=== PATIENT | male | born 1950 | race Caucasian/White ===

== ENCOUNTER 2016-10-15 14:30 | Emergency (ER) | payer OTHER ==
[2016-10-15] MEDS ORDERED: KETOROLAC TROMETHAMINE INJ 30 MG/ML VIAL IV ONE (14:38)
[2016-10-15] MEDS ORDERED: SODIUM CHLORIDE 0.9% 1000ML 1,000 ML IVS ONE (14:39)
[2016-10-15 14:41] VITALS: TEMP 97.3
--- NOTE | 2016-10-15 14:54 | ED.PDOC ---
History of Present Illness - General Chief Complaint: Abdominal Pain Stated Complaint: abdominal pain Time Seen by Provider: 10/15/16 14:37 Information Source: patient, RN notes reviewed, Vital Signs reviewed, family Additional Information: Pt reports sudden onset of left sided abdominal pain - sharp and cramp associated with nausea and vomiting. No prior similar symptoms. - History of Present Illness Abdominal Pain Onset Location: LLQ Pain Radiation: groin Quality: severe, cramping, sharpness Timing/Duration: 1 hour Improving Factors: nothing Worsening Factors: nothing Associated Symptoms: nausea/vomiting Review of Systems - Review of Systems Constitutional: States: no symptoms reported EENTM: States: no symptoms reported Respiratory: States: no symptoms reported Cardiology: States: no symptoms reported Gastrointestinal/Abdominal: States: see HPI Genitourinary: States: see HPI Musculoskeletal: States: no symptoms reported Skin: States: no symptoms reported Neurological: States: no symptoms reported Endocrine: States: no symptoms reported Hematologic/Lymphatic: States: no symptoms reported Past Medical History (General) - Patient Medical History Hx Congestive Heart Failure: No Hx Diabetes: No Surgical History: no surgical history - Vaccination History Hx Influenza Vaccination: No - Social History Hx Tobacco Use: No Family Medical History - Family History Father Family History: Unknown Living Status: Unknown Physical Exam - Physical Exam General Appearance: Restless - due to pain - moaning, Well Developed, Well Groomed, Well Nourished Eyes, Ears, Nose, Throat Exam: PERRL/EOMI, normal ENT inspection, pharynx normal Neck: non-tender, full range of motion, supple, normal inspection Respiratory: no respiratory distress Cardiovascular/Chest: regular rate, rhythm Gastrointestinal/Abdominal: non tender, soft Extremity: normal range of motion, non-tender 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 IV, labs, meds, CT Scan ordered immediately. No response to Toradol 30 mg IV. Therefore, added Dilaudid 1 mg x 1 IV and Zofran 4 mg IV x 1, along with NS [address] Scan showed left sided nephrolithiasis and ureterolithiasis. 10/15/16 15:38 Pt given 2nd dose of Dilaudid 1 mg IV with good effects. Pt more comfortable after this dose. 10/15/16 16:14 Pain improved. Pt comfortable enough to go home. Pt asked if he was going to get pain medicine prescribed to him. I told him I would prescribe Ibuprofen 800 mg tid, Flomax 0.4 mg daily, and T3 as needed. I encouraged him to drink plenty of water as well. Pt said T3 isn't very strong. I told him the mainstay for the treatment if plenty of water and the Flomax, along with the other meds should help. - Results/Orders Results/Orders: EXAM: Abdoment/Pelvis w/o Contrast CLINICAL INDICATION: 66-year-old male with acute left-sided abdominal pain. COMPARISON: None. EXAMINATION: CT of the abdomen and pelvis was performed without intravenous or oral contrast. Multiplanar reformatted images were provided. This exam was performed according to our departmental dose optimization program which includes use of automated exposure control, adjustment of the mA and/or kV according to patient size and/or use of iterative reconstruction technique. FINDINGS: Evaluation of solid organ pathology is limited secondary to lack of intravenous contrast. Examination findings are further limited by breathing motion artifact. Within these limitations, the following observations are made. Chest: Evaluation through the lung bases reveals no focal opacity, pleural effusion or pneumothorax. Heart size is within normal limits. No pericardial effusion. Abdomen and pelvis: The liver, gallbladder, pancreas, spleen, bilateral kidneys and bilateral adrenal glands are within normal limits. Punctate focus of calcification present within the inferior pole of the LEFT kidney compatible with 2 mm nonobstructing calculus. The vessels are normal in caliber. No abdominopelvic lymph nodes are noted to be pathologically enlarged by CT measurement criteria. Nonspecific thickening of the wall of the rectum, distal sigmoid colon may be incomplete distention versus proctitis. The remainder of the large bowel appears to be otherwise within normal limits. No free air. No free abdominopelvic fluid collections. The appendix is within normal limits. The osseous structures reveal lower lumbar spine degenerative change. Small fat-containing RIGHT inguinal hernia. IMPRESSION: 1. No specific acute intra-abdominal findings are noted to suggest etiology of the patient's abdominal pain. 2. Nonspecific thickening of the wall of the rectum, distal sigmoid colon may be incomplete distention versus proctitis. 3. Punctate focus of calcification present within the inferior pole of the LEFT kidney compatible with 2 mm nonobstructing calculus. No hydronephrosis or hydroureter, however the distal ureter is not visualized secondary to multiple bowel loops. Few small pelvic phleboliths are present. Electronically signed by: Shona Machado MD 10/15/2016 3:46 PM CDT Workstation: [id number] Dictated By: Shona Machado Signed By: Shona Machado Dictated Date/Time: 10/15/16 143 Transcribed Date/Time: 10/15/161437 All Around Presser: EBONI Signed Date/Time: 10/15/16 1546 CC: 10/15/16 14:39 URINALYSIS Stat Laboratory Results - last 24 hr 10/15/16 14:45 Sodium 143 Potassium 4.4 Chloride 107 Carbon Dioxide 23 Anion Gap 17.4 BUN 16 Creatinine 0.91 BUN/Creatinine Ratio 17.6 Random Glucose 115 H Serum Osmolality 287.1 Calcium 9.7 Total Bilirubin 1.4 H AST 21 ALT 19 Alkaline Phosphatase 53 Serum Total Protein 6.9 Albumin 4.4 Globulin 2.5 Albumin/Globulin Ratio 1.8 - EKG/XRAY/CT CT: abdomen/pelvis noncontrast Departure - Departure Clinical Impression: Nephrolithiasis Time of Disposition: 16:32 Disposition: Discharge to Home or Self Care Condition: Good Departure Forms: ED Discharge - Pt. Copy, Patient Portal Self Enrollment Instructions: DI for Kidney Stones Prescriptions: Acetamin W/Cod #3 Tab [Tylenol #3 Tab] 1 ea PO Q4-6H PRN #20 tab PRN Reason: Pain -- Moderate To Severe Ibuprofen 800 mg PO TID #21 tab Tamsulosin HCl [Flomax] 0.4 mg PO DAILY #14 cap Home Medications: Ambulatory Orders Acetamin W/Cod #3 Tab [Tylenol #3 Tab] 1 ea PO Q4-6H PRN #20 tab 10/15/16 Ibuprofen 800 mg PO TID #21 tab 10/15/16 Tamsulosin HCl [Flomax] 0.4 mg PO DAILY #14 cap 10/15/16 Additional Instructions: Strain the urine. Take Ibuprofen 800 mg three times a day for the next 7 days. Drink at least 2 liters of water daily. Flomax should help you pass the stone. Tylenol with Codeine as needed for severe pain.
[2016-10-15] MEDS ORDERED: ONDANSETRON INJ 4 MG/2 ML VIAL IV ONE (15:02)
[2016-10-15] MEDS ORDERED: HYDROmorphone HCL INJ 2 MG/ML VIAL IV ONE ×2 (15:02→15:30)
--- NOTE | 2016-10-15 15:48 | CT ---
EXAM: Abdoment/Pelvis w/o Contrast CLINICAL INDICATION: 66-year-old male with acute left-sided abdominal pain. COMPARISON: None. EXAMINATION: CT of the abdomen and pelvis was performed without intravenous or oral contrast. Multiplanar reformatted images were provided. This exam was performed according to our departmental dose optimization program which includes use of automated exposure control, adjustment of the mA and/or kV according to patient size and/or use of iterative reconstruction technique. FINDINGS: Evaluation of solid organ pathology is limited secondary to lack of intravenous contrast. Examination findings are further limited by breathing motion artifact. Within these limitations, the following observations are made. Chest: Evaluation through the lung bases reveals no focal opacity, pleural effusion or pneumothorax. Heart size is within normal limits. No pericardial effusion. Abdomen and pelvis: The liver, gallbladder, pancreas, spleen, bilateral kidneys and bilateral adrenal glands are within normal limits. Punctate focus of calcification present within the inferior pole of the LEFT kidney compatible with 2 mm nonobstructing calculus. The vessels are normal in caliber. No abdominopelvic lymph nodes are noted to be pathologically enlarged by CT measurement criteria. Nonspecific thickening of the wall of the rectum, distal sigmoid colon may be incomplete distention versus proctitis. The remainder of the large bowel appears to be otherwise within normal limits. No free air. No free abdominopelvic fluid collections. The appendix is within normal limits. The osseous structures reveal lower lumbar spine degenerative change. Small fat-containing RIGHT inguinal hernia. IMPRESSION: 1. No specific acute intra-abdominal findings are noted to suggest etiology of the patient's abdominal pain. 2. Nonspecific thickening of the wall of the rectum, distal sigmoid colon may be incomplete distention versus proctitis. 3. Punctate focus of calcification present within the inferior pole of the LEFT kidney compatible with 2 mm nonobstructing calculus. No hydronephrosis or hydroureter, however the distal ureter is not visualized secondary to multiple bowel loops. Few small pelvic phleboliths are present. Electronically signed by: Shona Machado MD 10/15/2016 3:46 PM CDT Workstation: [id number]
[2016-10-15 16:36] VITALS: BP 151/73; O2SAT 94
== END 2016-10-15 16:36 | disposition home or self-care (01) ==
LOC: ER 14:30
DX: N20.0 Calculus of kidney (principal)
CPT/HCPCS: 36415; 74176; 80053; J1170; J1885; J2405; J7030

== ENCOUNTER 2016-10-18 02:02 | Emergency (ER) | payer OTHER ==
--- NOTE | 2016-10-18 02:09 | ED.PDOC ---
History of Present Illness - General Chief Complaint: General Stated Complaint: vomiting Time Seen by Provider: 10/18/16 02:08 Source: patient Exam Limitations: no limitations - History of Present Illness Initial Comments: Gabriel Tellez 66 y/o male with history of nephrolithiasis diagnosed 3 days ago came today with vomiting and carmpy lower abdominal pain stating had same symptoms 3 days ago.No diarrhea,had bm today. Timing/Duration: 4-6 hours Severity: moderate Improving Factors: nothing Worsening Factors: nothing Associated Symptoms: nausea/vomiting Allergies/Adverse Reactions: Allergies NO KNOWN ALLERGY Allergy (Verified 10/15/16 14:41) Home Medications: Ambulatory Orders Acetamin W/Cod #3 Tab [Tylenol #3 Tab] 1 ea PO Q4-6H PRN #20 tab 10/15/16 Ibuprofen 800 mg PO TID #21 tab 10/15/16 Tamsulosin HCl [Flomax] 0.4 mg PO DAILY #14 cap 10/15/16 Review of Systems - Review of Systems Constitutional: States: no symptoms reported EENTM: States: no symptoms reported Respiratory: States: no symptoms reported Cardiology: States: no symptoms reported Gastrointestinal/Abdominal: States: see HPI Genitourinary: States: see HPI Musculoskeletal: States: no symptoms reported Skin: States: no symptoms reported Past Medical History (General) - Patient Medical History Hx Congestive Heart Failure: No Hx Diabetes: No - Vaccination History Hx Influenza Vaccination: No - Social History Hx Tobacco Use: No Family Medical History - Family History Father Family History: Unknown Living Status: Unknown Physical Exam - Physical Exam General Appearance: Alert, Anxious, No apparent distress Eye Exam: bilateral normal Ears, Nose, Throat: hearing grossly normal, normal ENT inspection Neck: non-tender, full range of motion, supple Respiratory: chest non-tender, lungs clear, normal breath sounds Cardiovascular/Chest: normal peripheral pulses, regular rate, rhythm, no edema Peripheral Pulses: radial,right: 1+, radial,left: 1+ Gastrointestinal/Abdominal: normal bowel sounds, non tender, soft, no organomegaly Back Exam: no CVA tenderness Extremity: non-tender, no pedal edema, no calf tenderness Neurologic: alert, oriented x 3 Skin Exam: normal color, warm/dry Lymphatic: no adenopathy Progress - Progress Progress: 10/18/16 04:14 Vital Signs - 8 hr 10/18/16 02:14 Temperature 98.3 F Pulse Rate [ 56 L Right] Respiratory 16 Rate Blood Pressure 154/76 [Left Arm] Laboratory Tests 10/18/16 10/18/16 10/18/16 02:35 02:35 02:35 WBC 6.4 RBC 4.73 Hgb 14.8 Hct 44.3 MCV 93.5 MCH 31.3 H MCHC 33.5 RDW 14.6 H Plt Count 140 MPV 8.8 Absolute Neuts (auto) 4.80 Absolute Lymphs (auto) 0.70 L Absolute Monos (auto) 0.70 Absolute Eos (auto) 0.20 Absolute Basos (auto) 0.00 Neutrophils % 74.4 Lymphocytes % 11.5 L Monocytes % 10.4 H Eosinophils % 3.2 Basophils % 0.5 Sodium 142 Potassium 4.4 Chloride 106 Carbon Dioxide 26 Anion Gap 14.4 BUN 16 Creatinine 0.77 BUN/Creatinine Ratio 20.8 H Random Glucose 106 H Serum Osmolality 284.7 Calcium 8.7 Total Bilirubin 1.0 AST 14 ALT 13 Alkaline Phosphatase 47 Troponin I < 0.02 Serum Total Protein 6.1 L Albumin 3.7 Globulin 2.4 Albumin/Globulin Ratio 1.5 Lipase 10/18/16 02:35 WBC RBC Hgb Hct MCV MCH MCHC RDW Plt Count MPV Absolute Neuts (auto) Absolute Lymphs (auto) Absolute Monos (auto) Absolute Eos (auto) Absolute Basos (auto) Neutrophils % Lymphocytes % Monocytes % Eosinophils % Basophils % Sodium Potassium Chloride Carbon Dioxide Anion Gap BUN Creatinine BUN/Creatinine Ratio Random Glucose Serum Osmolality Calcium Total Bilirubin AST ALT Alkaline Phosphatase Troponin I Serum Total Protein Albumin Globulin Albumin/Globulin Ratio Lipase 14 L 10/18/16 02:10 URINALYSIS Stat 10/18/16 02:15 EKG STAT Laboratory Results WBC 6.4 K/mm3 (4.8-10.8) 10/18/16 02:35 RBC 4.73 M/mm3 (4.70-6.10) 10/18/16 02:35 Hgb 14.8 gm/dL (14.0-18.0) 10/18/16 02:35 Hct 44.3 % (42.0-52.0) 10/18/16 02:35 MCV 93.5 fl (80.0-94.0) 10/18/16 02:35 MCH 31.3 pg (27.0-31.0) H 10/18/16 02:35 MCHC 33.5 g/dL (33.0-37.0) 10/18/16 02:35 RDW 14.6 % (11.5-14.5) H 10/18/16 02:35 Plt Count 140 K/mm3 (130-400) 10/18/16 02:35 MPV 8.8 fl (7.40-10.4) 10/18/16 02:35 Absolute Neuts (auto) 4.80 K/uL (1.8-6.8) 10/18/16 02:35 Absolute Lymphs (auto) 0.70 K/uL (1.0-3.4) L 10/18/16 02:35 Absolute Monos (auto) 0.70 K/uL (0.2-0.8) 10/18/16 02:35 Absolute Eos (auto) 0.20 K/uL (0.0-0.4) 10/18/16 02:35 Absolute Basos (auto) 0.00 K/uL (0.0-0.1) 10/18/16 02:35 Neutrophils % 74.4 % (42.0-78.0) 10/18/16 02:35 Lymphocytes % 11.5 % (20.0-50.0) L 10/18/16 02:35 Monocytes % 10.4 % (2.0-9.0) H 10/18/16 02:35 Eosinophils % 3.2 % (1.0-5.0) 10/18/16 02:35 Basophils % 0.5 % (0.0-2.0) 10/18/16 02:35 Sodium 142 mmol/L (135-145) 10/18/16 02:35 Potassium 4.4 mmol/L (3.6-5.0) 10/18/16 02:35 Chloride 106 mmol/L (101-111) 10/18/16 02:35 Carbon Dioxide 26 mmol/L (21-31) 10/18/16 02:35 Anion Gap 14.4 (12-18) 10/18/16 02:35 BUN 16 mg/dL (7-18) 10/18/16 02:35 Creatinine 0.77 mg/dL (0.6-1.3) 10/18/16 02:35 BUN/Creatinine Ratio 20.8 (10-20) H 10/18/16 02:35 Random Glucose 106 mg/dL (70-105) H 10/18/16 02:35 Serum Osmolality 284.7 mOsm/L (275-295) 10/18/16 02:35 Calcium 8.7 mg/dL (8.4-10.2) 10/18/16 02:35 Total Bilirubin 1.0 mg/dL (0.2-1.0) 10/18/16 02:35 AST 14 IU/L (10-42) 10/18/16 02:35 ALT 13 IU/L (10-60) 10/18/16 02:35 Alkaline Phosphatase 47 IU/L (42-121) 10/18/16 02:35 Troponin I < 0.02 ng/mL (0.01-0.05) 10/18/16 02:35 Serum Total Protein 6.1 gm/dL (6.4-8.2) L 10/18/16 02:35 Albumin 3.7 g/dl (3.2-5.5) 10/18/16 02:35 Globulin 2.4 gm/dL (2.3-3.5) 10/18/16 02:35 Albumin/Globulin Ratio 1.5 (1.1-1.9) 10/18/16 02:35 Lipase 14 U/L (22-51) L 10/18/16 02:35 - EKG/XRAY/CT EKG: Sinus, no ST T wave changes Comments: heart rate-54 CT: enteritis/mild amount of free fluid CT Ordered: Yes - abd /pelvis:2 mm non obstructing stone left kidney Departure - Departure Clinical Impression: Abdominal pain Qualifiers: Abdominal location: unspecified location Qualified Code(s): R10.9 - Unspecified abdominal pain Nausea & vomiting Qualifiers: Vomiting type: unspecified Vomiting Intractability: non-intractable Qualified Code(s): R11.2 - Nausea with vomiting, unspecified Time of Disposition: 04:18 Disposition: Discharge to Home or Self Care Diet: other - clear liquids in am avoid greasy/spicy foods;advance diet as tolerated Referrals: Tapan Chiu MD [Primary Care Provider] - 1-2 Weeks Home Medications: Ambulatory Orders Acetamin W/Cod #3 Tab [Tylenol #3 Tab] 1 ea PO Q4-6H PRN #20 tab 10/15/16 Ibuprofen 800 mg PO TID #21 tab 10/15/16 Tamsulosin HCl [Flomax] 0.4 mg PO DAILY #14 cap 10/15/16 Additional Instructions: Follow up with primary md today call during office hours for re check
[2016-10-18] MEDS ORDERED: LACTATED RINGERS 1,000 ML IVS ONE (02:10)
[2016-10-18] MEDS ORDERED: ONDANSETRON INJ 4 MG/2 ML VIAL IV ONE (02:11)
[2016-10-18 02:21] VITALS: TEMP 98.3
[2016-10-18] MEDS ORDERED: PROMETHAZINE HCL INJ 25 MG/ML VIAL IM ONE (03:36)
[2016-10-18] MEDS ORDERED: HYDROmorphone HCL INJ 2 MG/ML VIAL IV ONE (03:36)
--- NOTE | 2016-10-18 03:46 | CT ---
EXAM: CT abdomen and pelvis without contrast. INDICATION: Abdominal pain, acute. TECHNIQUE: Contiguous axial CT images of the abdomen and pelvis. Intravenous contrast: Absent. Oral contrast: Absent. Protocol: Renal stone. DLP 642 mGy-cm. This exam was performed according to our departmental dose-optimization program, which includes automated exposure control, adjustment of the mA and/or kV according to patient size and/or use of iterative reconstruction technique. COMPARISON: 10/15/2016. FINDINGS: Lower chest: Partially imaged. Lung bases: Unremarkable. Cardiac apex: Unremarkable. Solid abdominal viscera: Limited by lack of intravenous contrast. Liver: Unremarkable. Gallbladder: Unremarkable. Pancreas: Unremarkable. Spleen: Unremarkable. Adrenal glands: Unremarkable. Right kidney: No urolithiasis or hydronephrosis. Left kidney: There is a 2 mm nonobstructing stone along the lower pole. Urinary bladder: Unremarkable. Abdominal aorta: Unremarkable. Peritoneal: Free fluid: Mild Free air: None. Other: No pathologic sized lymph nodes in the upper abdomen. Bowel: Stomach: Unremarkable. Small bowel: The small bowel measures up to 2.9 cm in diameter with bowel wall thickening with mucosal edema, which was not present on the prior. Appendix: Unremarkable. Colon: Unremarkable. Rectum: Unremarkable. Prostate: Unremarkable. Bones: Unremarkable. IMPRESSION: Distention of the small bowel with mucosal edema with development of a mild amount of free fluid. This may be due to a low-grade obstruction or enteritis. Nonobstructing left-sided nephrolithiasis Electronically signed by: Javi Berumen MD 10/18/2016 3:45 AM CDT Workstation: [id number]
[2016-10-18 04:16] VITALS: BP 112/71
[2016-10-18] MEDS ORDERED: ONDANSETRON ODT (ER DISP) 8 MG TAB PO ONE (04:22)
== END 2016-10-18 04:36 | disposition home or self-care (01) ==
LOC: ER 02:02
DX: R11.2 Nausea with vomiting, unspecified (principal); Z87.442 Personal history of urinary calculi
CPT/HCPCS: 36415; 74176; 80053; 83690; 84484; 85025; 93005; J1170; J2405; J2550; J7120

== ENCOUNTER 2016-10-18 14:56 | Inpatient (IN) | payer OTHER ==
--- NOTE | 2016-10-18 14:57 | HP ---
SUPERVISING PHYSICIAN: Red Santana M.D. CHIEF COMPLAINT: Abdominal pain. HISTORY OF PRESENT ILLNESS: Mr. Tellez is a 66 year-old male patient of Dr. Casanova. He has had complaints of severe abdominal pains that started on 10/15/16 at which time he was seen in the Emergency Department and diagnosed with nephrolithiasis. He was given a prescription for Flomax, Tylenol #3 and Ibuprofen. He continued to have worsening of his pain. It became persistent and described as coming in waves and more crampy, therefore he presented back to the Emergency Department on 10/18/16 early in the morning and was seen, and had a CT of the abdomen and pelvis without contrast which showed a possible low grade small bowel obstruction versus enteritis. He was then discharged after being given IV fluids and instructed to followup with his primary care provider after discharge. He was seen by Dr. Chiu today and again was still having persistent nausea with some emesis, and worsening abdominal pain. After review of the CT findings from the most recent E. R. visit, Dr. Chiu contacted Dr. Reyes for consultation and recommended the patient be admitted to the hospital for small bowel obstruction and surgical consultation. The patient was admitted directly from the clinic in stable condition. PAST MEDICAL HISTORY: 1. Gastroesophageal reflux disease. 2. Chronic insomnia. 3. Idiopathic pruritus. 4. Benign prostatic hypertrophy. PAST SURGICAL HISTORY: 1. Tonsillectomy. HOME MEDICATIONS: 1. Ambien 10 mg at bedtime. 2. Tizanidine 4 mg at bedtime. 3. Hydroxyzine 50 mg daily. 4. Viagra 100 mg p.r.n. ALLERGIES: NO KNOWN DRUG ALLERGIES. FAMILY HISTORY: Unremarkable. 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 He is . He has never drank nor does he smoke, and has never used illicit drugs. REVIEW OF SYSTEMS: CONSTITUTIONAL: Denies any fever or chills, or unintentional weight changes. HEENT: Denies any rhinorrhea, sore throats, congestion or headaches. CARDIOVASCULAR: Denies any chest pains, palpitations, syncopal or presyncopal episodes. RESPIRATORY: Denies any cough or shortness of breath. GASTROINTESTINAL: As per History of Present Illness. Persistent abdominal pains consistent for small bowel obstruction. Denies any constipation or recent diarrhea or any bowel habit changes. NEUROLOGIC: Denies any headaches, ataxia, syncopal episodes or any neurologic deficits. PHYSICAL EXAMINATION: VITAL SIGNS: Temperature 98.8, pulse 60, blood pressure 135/77, respirations 12 , satting 97% on room air. GENERAL: The patient is well nourished, appears to be somewhat dehydrated but is comfortable at time of exam in no acute distress. HEENT: Tympanic membranes are clear bilaterally. Oropharynx was pink with mucosal membranes being dry. There were no lesions. NECK: Supple, non-tender with full range of motion. No jugular venous distention. CHEST: Lungs were clear to auscultation without any rhonchi, wheezing or rales. CARDIOVASCULAR: Regular rate and rhythm without appreciable murmurs, gallops, or rubs. ABDOMEN: Diffusely tender with hyperactive bowel sounds. EXTREMITIES: No clubbing, cyanosis or edema. NEUROLOGIC: Cranial nerves II-XII are grossly intact. Facial features are symmetrical. Extraocular movements are within normal limits with no nystagmus. He was alert and oriented time three. LABORATORY: CBC showed white count 4.5 with hemoglobin 14.3, hematocrit 43.4 with differential showing to be within normal limits. Platelet count 143,000. Chemistries showed normal electrolytes with potassium 4.6, BUN 15, creatinine 0.86, glucose 104, calcium 8.6, magnesium 1.8. Total bilirubin was slightly elevated at 1.1. Liver functions showed to be within normal limits as well as pancreatic enzymes were normal. Urinalysis is pending. RADIOLOGY: Abdominal x-ray series per radiology interpretation showed dilated small bowel loops were noted in somewhat organized and stacked appearance most consistent with a modest small bowel obstruction. ASSESSMENT: 1. Small bowel obstruction as noted on radiographic studies. 2. Nausea, vomiting and abdominal pain secondary to #1. 3. Benign prostatic hypertrophy. 4. Gastroesophageal reflux disease. 5. Chronic insomnia. PLAN: The patient will be admitted to the hospital for continuation of treatment and evaluation, and surgical consultation. He will be made NPO and started on IV fluids to include D5-1/2 normal saline with 30 of potassium running at 120 an hour. He will be provided pain medicine with morphine and antiemetics for nausea with Zofran or Phenergan as needed. Consultation with Dr. Reyes has been requested. Will await further recommendations. Until then, consideration for NG tube placement after examination depending on the patient' s physiological state and any nausea or vomiting. Will anticipate length of stay to be 2 to 3 days. He will be on DVT prophylaxis as per protocol except for Lovenox until determination of need for any surgical intervention after consultation with Dr. Reyes. Until discharge, will continue to monitor and treat appropriately. #[id number] [facility]
[2016-10-18] MEDS ORDERED: ONDANSETRON INJ 4 MG/2 ML VIAL IV PRN (15:12)
[2016-10-18] MEDS ORDERED: MORPHINE SULFATE INJ 10 MG/ML VIAL IV PRN (15:12)
[2016-10-18] MEDS ORDERED: SODIUM CHLORIDE 0.9% (FLUSH) 10 ML SYG IV PRN (15:12)
--- NOTE | 2016-10-18 15:49 | RAD ---
EXAM DESCRIPTION: Abdomen Flat Upright CLINICAL HISTORY: 66 years Male, SBO COMPARISON: None. FINDINGS: Two views of the abdomen demonstrate clear lung angel with no evidence of free abdominal air on the upright view. Stacked modestly dilated loops of bowel are present in the central and upper abdomen consistent with at least a moderate partial small bowel obstruction. No unusual calculi or soft tissue masses are seen. The bony structures of the spine and pelvis are normal. IMPRESSION: Dilated small bowel loops in a somewhat organized and stacked appearance most consistent with a modest small bowel obstruction. Electronically signed by: Red Levine MD 10/18/2016 3:48 PM CDT
[2016-10-18] MEDS: KCL 30MEQ/D5 1/2NS 1,000 ML IVS PRN (17:14)
--- NOTE | 2016-10-18 21:01 | CONS ---
DATE OF CONSULTATION: 10/18/16 REFERRING PHYSICIAN: Hospitalist Service, Dr. Santana and Ezekiel Jeffery HISTORY OF PRESENT ILLNESS: The patient is a 66 year-old male of Dr. Chiu's who is admitted directly from his office this afternoon. He was seen 3 days ago and diagnosed with nephrolithiasis on the left and given Tylenol #3, a shot of Dilaudid and Flomax. The pain has worsened. He presented to the Emergency Room this morning. He had a CT scan of the abdomen that showed a possible low grade bowel obstruction versus enteritis. He followed-up with Dr. Chiu. X- rays showed worsening dilation of the small bowel along with nausea, emesis and increasing pain. He has no history of hematemesis, hematochezia or melena. He denies fever or chills. Denies urinary symptoms, cough or chest pain. He has no history of intraabdominal surgery and has never had a colonoscopy. PAST MEDICAL HISTORY: 1. Gastroesophageal reflux disease. 2. Insomnia. 3. Benign prostatic hypertrophy. PAST SURGICAL HISTORY: 1. Tonsillectomy. CURRENT MEDICATIONS: 1. Ambien. 2. Tizanidine. 3. Hydroxyzine. 4. Viagra. ALLERGIES: NO KNOWN DRUG ALLERGIES. FAMILY HISTORY: Unremarkable. There is specifically no history of gastrointestinal malignancies in his family. SOCIAL HISTORY: The patient has recently . 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 Does not drink, smoke and never used illegal drugs. REVIEW OF SYSTEMS: Unremarkable except as in the History of Present Illness. He denies recent problems with constipation or diarrhea. PHYSICAL EXAMINATION: VITAL SIGNS: Afebrile, normotensive. GENERAL: The patient is awake, alert, cooperative and in mild distress. HEENT: Reveals the sclera to be nonicteric. Mucous membranes are moist, but almost dry. NECK: Without adenopathy. BACK: Without CVA tenderness. CHEST: He has equal breath sounds bilaterally anteriorly. HEART: Regular rate and rhythm. ABDOMEN: Diffuse tenderness greatest in the left lower quadrant with active bowel sounds. There was no guarding. There was possibly some referred tenderness to the left lower quadrant. RECTAL: Exam was deferred but a recent rectal exam by Dr. Chiu was unremarkable. EXTREMITIES: Without clubbing, cyanosis or edema. LABORATORY: White count 4.5, hemoglobin 14. Normal differential, platelet count 145,000. Potassium 4.7, creatinine 0.86, magnesium 1.8, calcium 8.6. Bilirubin 1.4, otherwise normal liver enzymes and pancreatic enzymes. The patient has still not voided. Abdominal x-ray and CT scan showed dilated loops of small bowel but with no discrete transition zone. There is a large amount of stool and air in the colon. The stomach is dilated on the plain x-ray and the CT scan. IMPRESSION: 1. Early versus partial bowel obstruction versus enteritis. 2. History of gastroesophageal reflux disease. 3. Benign prostatic hypertrophy. PLAN: The patient will be put at bowel rest. He will have catharsis from below with a tap water enema. We will follow the patient with x-ray and lab in the morning. The patient has been informed if his nausea and vomiting continues we will probably place a nasogastric tube. #[id number] [facility]
[2016-10-18] MEDS: IV SET AND CAP CHANGE INJ INJ SCH (21:26)
[2016-10-18] MEDS: SODIUM CHLORIDE 0.9% (FLUSH) 10 ML SYG IV SCH (21:27)
[2016-10-19] MEDS: KCL 30MEQ/D5 1/2NS 1,000 ML IVS PRN ×3 (01:24→18:20)
--- NOTE | 2016-10-19 06:54 | RAD ---
CLINICAL HISTORY:SBO. :1950. Sex:Male. TECHNIQUE: Supine and upright views of the abdomen. There are dilated loops of small bowel measuring up to 3.1 cm in diameter with mucosal edema. There are varying air-fluid levels.. There is no mass. There is no free air. There is no opaque calculus. Skeletal structures are unremarkable. The visible lung bases are clear IMPRESSION: Small bowel obstruction Electronically signed by: Javi Berumen MD 10/19/2016 6:53 AM CDT Workstation: [id number]
[2016-10-19] MEDS: SODIUM CHLORIDE 0.9% (FLUSH) 10 ML SYG IV SCH ×2 (09:00→20:49)
--- NOTE | 2016-10-19 11:34 | PCM.CORE ---
Physician DVT/VTE - Nurse DVT Assessment & Total Each Risk Factor Represents 2 Points: Age 60-74 Each Risk Factor is 1 Point: Hx of Inflammatory Bowel Disease DVT Assessment Score: 3 - 3-4 High Risk Treatments: Early Ambulation *, Sequential Compression Device Pharmacological: Enoxaparin 40 mg SQ Daily
[2016-10-19] MEDS ORDERED: MAGNESIUM HYDROXIDE 30 ML UD PO ONE (13:20)
--- NOTE | 2016-10-19 17:56 | PN ---
DATE: 10/19/16 SUPERVISING PHYSICIAN: Red Santana M.D. SUBJECTIVE: The patient says his pain this morning is improved, much less in intensity. He remains without a fever and he has had no nausea or vomiting through the night. He has been encouraged to ambulate as much as possible and was seen in consultation by Dr. Reyes this morning. The patient did receive a tap water enema last night, however there was some difficulty apparently passing the enema probe, therefore the patient was unable to fully receive the total volume and no results were noted. A rectal exam was performed this morning by Dr. Reyes who noted there was no evidence of any strictures or any obstructions. OBJECTIVE: VITAL SIGNS: T max 98.5, pulse 60, blood pressure 115/65, respirations 16, satting 97% on room air. I's and O's show a positive balance of 190 with 990 in, 800 out. He has had 2 bowel movements with the enema this morning. Weight was 75.6 kg. CHEST: Clear to auscultation bilaterally. HEART : Regular rate and rhythm. ABDOMEN: Soft with some notable tenderness to the right lower quadrant on deep palpation but no rebound tenderness. Positive bowel sounds. EXTREMITIES: No clubbing, cyanosis or edema. NEUROLOGIC: He is alert and oriented times three. LABORATORY: White count today is 4.4, hemoglobin 13.4, hematocrit 40.1, platelet count 136,000. Differential showed to be within normal limits. Chemistries showed normal electrolytes, potassium 4.0, BUN 13, creatinine 0.82, glucose 112, calcium 7.9. Liver functions showed to be within normal limits. Urinalysis showed just 15 of ketones, small amount of bilirubin, otherwise within normal limits. MICROBIOLOGY: No specimens were submitted. RADIOLOGY: Repeat abdominal x-ray this morning per radiology interpretation was noted again a small bowel obstruction. ASSESSMENT: 1. Early versus partial bowel obstruction versus enteritis. 2. History of gastroesophageal reflux disease. 3. Benign prostatic hypertrophy. 4. Chronic insomnia. PLAN: The patient is being seen by Dr. Reyes. Will continue to monitor the patient per recommendations from Dr. Reyes. The patient will be started on a clear liquid diet today. He will be given another enema as well as once he has results from that, advanced to oral laxatives with Milk of Magnesia. He was once again encouraged to ambulate. Anticipate hopefully being discharged tomorrow. Until then, will continue to monitor and treat appropriately. #[id number] [facility]
[2016-10-19] MEDS ORDERED: HYDROXYZINE HCL 50 MG PO SCH (19:15)
[2016-10-19] MEDS ORDERED: hydrOXYzine HCl 25 MG TAB ONE (20:11)
[2016-10-19] MEDS ORDERED: tiZANidine 4 MG TAB ONE (20:21)
[2016-10-19] MEDS: ENOXAPARIN SODIUM 40 MG/0.4 ML SYG SUBCU SCH (20:49)
[2016-10-19] MEDS: ZOLPIDEM TARTRATE 10 MG TAB PO SCH (20:49)
[2016-10-19] MEDS ORDERED: TIZANIDINE HCL 4 MG PO SCH (21:00)
[2016-10-19] MEDS ORDERED: ACETAMINOPHEN 325 MG TAB PO PRN (21:08)
[2016-10-20] MEDS: KCL 30MEQ/D5 1/2NS 1,000 ML IVS PRN ×3 (02:22→21:42)
[2016-10-20] MEDS ORDERED: hydrOXYzine HCl 25 MG TAB ONE (07:07)
--- NOTE | 2016-10-20 07:19 | RAD ---
EXAM DESCRIPTION: Abdomen Flat Upright CLINICAL HISTORY: 66 years Male, fu bowel obstruction COMPARISON: October 19, 2016 FINDINGS: Again seen are multiple dilated gas-filled small bowel loops scattered throughout the abdomen with associated air-fluid levels consistent with small bowel obstruction. There is only a small amount of stool and gas scattered throughout the colon. No pneumoperitoneum. IMPRESSION: Developing small bowel obstruction, slightly worse from yesterday. Electronically signed by: Michael Law MD 10/20/2016 7:18 AM CDT
[2016-10-20] MEDS: hydrOXYzine HCl 25 MG TAB PO SCH ×3 (08:51→21:19)
[2016-10-20] MEDS: SODIUM CHLORIDE 0.9% (FLUSH) 10 ML SYG IV SCH (08:51)
--- NOTE | 2016-10-20 13:17 | PN ---
DATE: 10/20/16 SUBJECTIVE: The patient is able to ambulate nicely in the halls. Still with abdominal discomfort more in the upper part of the abdomen than the lower at this time. Still on clear liquids. He has had increased volume of watery, liquid stools after Milk of Magnesia has been given in an effort to try to move some of the firm stool previously noted in the colon out to allow for some decompression of the small bowel. OBJECTIVE: VITAL SIGNS: Afebrile. Pulse 60. Blood pressure 126/71. Pulse oximetry 99% on room air. Multiple bowel movements are noted. Weight 75.8 kg. LUNGS: Clear. HEART: Regular. ABDOMEN: Some diminished, though present bowel tones. mat making machine tender with some tympany evident, especially in the upper part of the abdomen where the discomfort is noted. No vomiting. Still not feeling well. LABORATORY: Laboratory will be ordered for in the morning. RADIOLOGY: X-ray performed this morning revealed some increased evidence of dilated gas-filled loops of small bowel suggesting small bowel obstruction slightly worse than yesterday. This will require repeat evaluation and continued supportive care. Dr. Reyes is also assisting with the ongoing conservative treatment of the patient with special followup necessary. #[id number] [facility]
[2016-10-20] MEDS ORDERED: tiZANidine 4 MG TAB ONE (19:27)
[2016-10-20] MEDS: ENOXAPARIN SODIUM 40 MG/0.4 ML SYG SUBCU SCH (20:30)
[2016-10-20] MEDS: ZOLPIDEM TARTRATE 10 MG TAB PO SCH (20:30)
[2016-10-20] MEDS ORDERED: MAGNESIUM HYDROXIDE 30 ML UD PO ONE (20:49)
[2016-10-20] MEDS ORDERED: tiZANidine 4 MG TAB PO SCH (21:00)
[2016-10-21] MEDS: KCL 30MEQ/D5 1/2NS 1,000 ML IVS PRN (05:52)
--- NOTE | 2016-10-21 08:10 | RAD ---
Abdomen two views INDICATION: Abdominal pain COMPARISON: October 20 IMPRESSION: Bowel gas is present throughout the colon. There are several mildly dilated small bowel loops with mild wall thickening possible enteritis or low-grade partial obstruction/localized inflammation. Abnormal nonspecific pattern. No free air or pneumatosis. Lung bases are clear. No evidence of high-grade obstruction. Overall similar appearance to prior study. Electronically signed by: Dane Gaines MD 10/21/2016 8:08 AM CDT
[2016-10-21] MEDS: hydrOXYzine HCl 25 MG TAB PO SCH ×2 (08:47→16:04)
--- NOTE | 2016-10-21 13:12 | CT ---
EXAM DESCRIPTION: Abdomen/Pelvis w/Contrast CLINICAL HISTORY: possible SBO COMPARISON: None. TECHNIQUE: Spiral-axial scans at 5.0 mm intervals through the abdomen and pelvis after Gastrografin oral contrast and nonionic IV contrast. Coronal and sagittal 2.0 mm reconstructions. No delayed scans. No adverse reactions. . Total Exam DLP: 663.64 mGy-cm. This exam was performed according to our departmental dose-optimization program which includes automated exposure control, adjustment of the mA and/or kV according to patient size and/or use of iterative reconstruction technique; to reduce radiation dose to as low as reasonably achievable (ALARA). FINDINGS: Small Bowel: The jejunum and proximal and mid ileum are distended with fluid and gas. No oral contrast reached the mid jejunum to the right of midline (series 2, image 39). Distal jejunum and proximal and mid ileum are distended with fluid. A segment of thickened ileum with edema and enhancement of the phelps can be visualized in the right lower quadrant on series 2 from images 48 to 61. The ileum distal to this segment contains some fluid and gas with minimal wall thickening and enhancement. No sharp transition point, kinking, mass affect, or intussusception. Terminal Ileum/Cecum: The appendix is mildly retrocecal. No significant dilation or thickening. Terminal ileum on coronal series 602, images 47-56 with minimal wall thickening and enhancement but no distention. Colon: Nondistended with minimal gas and mostly fluid. Small diverticula in the sigmoid colon but no evidence of complications. Pelvic Organs: No radiodense stones in the urinary bladder. Contrast is not seen in either distal ureter. Calcifications in the pelvis. Prostate gland is impressing on the base of the urinary bladder. Also seminal vesicles. Fluid in the anterior peritoneal reflection. Fatty right inguinal hernia not containing bowel. Abdominal Wall/Back Soft Tissues: No other hernias. No abnormal density or contrast. Lung bases and pleura: Negative. Liver, Stomach, Spleen, and adrenal glands: Minimal fluid in the left perisplenic region. Normal enhancement of the spleen and liver. Adrenal glands are unremarkable. Stomach contains oral contrast. Pancreas, Gallbladder, Ducts: No focal lesions in the pancreas. Gallbladder is visualized. No duct dilation. Kidneys and Ureters: Scan performed after the nephrogram phase with contrast in the collecting systems and proximal ureters. Otherwise unremarkable. Mesentery: Increased fatty stranding in the lower midpelvis and right lower quadrant. No free air. Free fluid is noted. Aorta: No significant calcification or aneurysm. Spine and Bony Pelvis: Spondylosis L4-5 and L5-S1 with mild scoliosis. No bone destruction. IMPRESSION: 1. Suspect an inflammatory process in the distal ileum more than the terminal ileum with secondary partial small bowel obstruction. No abrupt transition point, no mass effect, no kinking or intussusception. Crohn's disease is in the differential. 2. Free fluid abutting the spleen and in the pelvis. This was also seen on the prior study. 3. Right inguinal hernia not containing bowel. 4. Enlarged prostate gland impressing on the base of the urinary bladder and the seminal vesicles. 5. Few diverticula in the sigmoid colon with no evidence of complications. CRITICAL COMMUNICATION: The critical value was discussed directly in person with Chava Reyes and Damon at approximately 1235 hours, on October 21, 2016. Electronically signed by: José Manuel Ratliff MD 10/21/2016 1:11 PM CDT
--- NOTE | 2016-10-21 15:16 | RAD ---
Abdomen two views INDICATION: Small bowel obstruction enteritis COMPARISON: October 20 IMPRESSION: Contrast in the stomach small amount. Short air-fluid levels probably within small bowel and colon. No evidence of high-grade obstruction. Faint contrast noted in the small bowel. There is also contrast in the bladder. Mild scoliosis. No evidence of free air or pneumatosis. Multiple densities are noted right upper quadrant and right lower quadrant likely from prior surgery Electronically signed by: Dane Gaines MD 10/21/2016 3:15 PM CDT
[2016-10-21 15:45] VITALS: BP 100/63; TEMP 97.6; O2SAT 98
[2016-10-21] MEDS: IV SET AND CAP CHANGE INJ INJ SCH (16:09)
--- NOTE | 2016-10-22 10:04 | DS ---
DISCHARGE DIAGNOSIS: 1. Acute abdominal pain. 2. Significant findings suggesting early small bowel obstruction versus intestinal ileus. Possibility of a localized area of enteritis suggesting an inflammatory bowel process near the ileocecal valve may suggest granulomatous enterocolitis, yet with a very normal C-reactive protein noted. 3. History of gastroesophageal reflux disease. 4. History of benign prostatic hypertrophy. 5. History of chronic insomnia. 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 He had been seen earlier on 10/15/16 and had a diagnosis of nephrolithiasis because of the pain. He has had worsening pain since and had a CT scan which revealed evidence of a possible small bowel obstruction versus enteritis. He was discharged from the Emergency Room initially and then was seen by Dr. Chiu and had some persistent nausea with some emesis and worsening pain. It was at this time that Dr. Chiu consulted with Dr. Reyes and the patient is admitted directly from the clinic in stable condition to the hospital for specific support and further investigation and stabilization. LABORATORY: White count 4,500 with 68% neutrophils. Chemistry shows sodium 140 , potassium 4.7, BUN low, creatinine 0.77, glucose 106, magnesium 1.8, bilirubin 1.1, liver enzymes normal. C-reactive protein of 1 and albumin 3.1. Lipase normal. Urinalysis shows ketonuria and some bilirubinuria but no bacteria noted. The urine was quite thick with specific gravity of 1.030. No cultures were obtained. Initial x-ray result was a plain film of the abdomen showing some dilated small bowel loops suggesting a modest small bowel obstruction. These findings of dilated loops of air-filled, fluid-filled small bowel persisted during the hospital course. He did have an abdominal pelvic CT on 10/21/16 repeating from the Emergency Room CT. There was an area of the small bowel close to the ileocecal valve that had thickened phelps and a decreased caliber to the lumen. Whether this was an area of inflammatory bowel disease is to be determined. Otherwise, there was no specific transition point and no significant other etiologies were noted. HOSPITAL COURSE: The patient was treated initially with bowel rest, then switched to clear liquids. His condition steadily improved and on the morning of discharge he stated he was feeling much improved. He was fully able to ambulate. His diet was slowly increased to clear liquids with associated Boost or Ensure up to 4 per day. It was at this time that repeat studies with additional Gastrografin noted the transition from the small bowel into the colon was complete and he seemed to be tolerating his diet quite well and further followup will be had in the outpatient department. PLAN: The patient is discharged home with close followup with Dr. Reyes on Monday in the clinic. To see Dr. Chiu in a week in followup. Continue with a clear liquid diet with Ensure or comparable liquid protein supplement, 1 can 4 to 5 times daily. Spread the diet throughout the day and avoid over filling the stomach. Will need followup with the GI Clinic next Monday and Dr. Reyes and Aram will assist with that scheduling. Stay active. Hemoccult stool cards given to the patient who when completed will take them to Dr. Chiu or Dr. Reyes's office for development. Keep in close touch with Dr. Reyes if not feeling better. Return of not improving. #[id number] [facility]
== END 2016-10-21 16:51 | disposition home or self-care (01) | DRG 390 ==
LOC: MS 14:56
PROVIDERS: ADMIT Nurse Practitioner Family; ATTEND Emergency Medicine
PROC: BW21YZZ Computerized Tomography (CT Scan) of Abdomen and Pelvis using Other Contrast (ICD-10-PCS; principal; 2016-10-21)
DX: K56.60 Unspecified intestinal obstruction (principal); K56.7 Ileus, unspecified; K52.9 Noninfective gastroenteritis and colitis, unspecified; K21.9 Gastro-esophageal reflux disease without esophagitis; N40.0 Benign prostatic hyperplasia without lower urinary tract symptoms; G47.00 Insomnia, unspecified; R82.4 Acetonuria; L29.8 Other pruritus; Z79.899 Other long term (current) drug therapy

== ENCOUNTER 2017-02-15 05:51 | Day surgery (SDC) | payer OTHER ==
[2017-02-15] MEDS ORDERED: LACTATED RINGERS 1,000 ML ONE (06:09)
[2017-02-15] MEDS ORDERED: MIDAZOLAM INJ 2 MG/2 ML VIAL ONE (07:07)
[2017-02-15] MEDS ORDERED: fentaNYL CITRATE INJ 50 MCG/ML AMP ONE (07:07)
[2017-02-15 09:08] VITALS: BP 89/50; TEMP 97.1; O2SAT 93
--- NOTE | 2017-02-15 09:33 | OP ---
DATE OF PROCEDURE: 02/15/17 PREOPERATIVE DIAGNOSIS: 1. Bilateral lower quadrant pain. POSTOPERATIVE DIAGNOSIS: 1. Colonic polyps. 2. Internal hemorrhoids. PROCEDURE: 1. Colonoscopy plus polypectomy. SURGEON: Joseph Virgen MD. COMPLICATIONS: None apparent. BLOOD LOSS: None. MEDICATIONS: Monitored anesthesia care. DESCRIPTION OF PROCEDURE: Informed consent was obtained prior to sedation. The preprocedure cardiopulmonary assessment was satisfactory. The patient was placed in the left lateral decubitus position and was sedated. A digital rectal exam was unremarkable. The tip of the Olympus colonoscope was inserted in the rectum and guided over to the cecum. There was some loop formation and the colon was tortuous. I had to reduce some loops and we applied abdominal pressure to the abdominal wall. With these measures, I was able to get the scope over to the cecum. The cecum was identified by locating the ileocecal valve and appendiceal orifice. Prep was good overall. There were some pools of fluid that had to be suctioned away, but that allowed for good visualization of the colon mucosa. The mucosa of the cecum, ascending colon, hepatic flexure , transverse colon, splenic flexure, descending colon and sigmoid colon was closely examined. Direct and retroflexed views of the rectum were obtained. There was no source for any pain identified. However, he did have four colonic polyps. Four of these were in the sigmoid colon and were all 6 mm in size or less. They were all removed, the largest three were removed with a hot snare and the smallest with a cold snare. In the descending colon, there was a sessile polyp right at about 1 cm in size and this was removed with a hot snare. The patient had internal hemorrhoids on retroflexed view of the rectum. The procedure was then terminated. RECOMMENDATIONS: Followup polyp pathology and then decide when his next screening is warranted. #[id number] cc: MD Bassem Wilson MD MTDD
[2017-02-15] MEDS ORDERED: LIDOCAINE 1% 10 ML VIAL INJ ONE (10:00)
[2017-02-15] MEDS ORDERED: PROPOFOL 200 MG/20 ML VIAL IV ONE (10:00)
== END 2017-02-15 10:20 | disposition home or self-care (01) ==
LOC: AMB 05:51
PROVIDERS: ATTEND Internal Medicine Gastroenterology
DX: R10.32 Left lower quadrant pain (principal); D12.5 Benign neoplasm of sigmoid colon; K64.8 Other hemorrhoids; Z79.899 Other long term (current) drug therapy
CPT/HCPCS: 00810; 45385; J2250; J3010; J3490; J7120

== ENCOUNTER → 2018-02-14 | Outpatient (CLI) | payer MEDICARE | LOC: GMAH 17:06 | PROVIDERS: ATTEND Family Medicine | DX: R53.83 Other fatigue (principal) ==

== ENCOUNTER → 2018-08-09 | Outpatient (CLI) | payer MEDICARE | CPT/HCPCS: 84443; 84550; G0103 ==

== ENCOUNTER → 2019-08-13 | Outpatient (CLI) | payer MEDICARE, OTHER | LOC: GMA MATASK 11:31 | PROVIDERS: ATTEND Family Medicine | DX: Z12.5 Encounter for screening for malignant neoplasm of prostate (principal); Z13.6 Encounter for screening for cardiovascular disorders; R53.83 Other fatigue | CPT/HCPCS: 84443; 84550; G0103 ==